=== PATIENT | male | born 1975 | race Caucasian/White ===

== ENCOUNTER 2017-05-10 09:05 | Emergency (ER) | payer SELFPAY ==
[~2017-05-10] VITALS: Ht 167.6 cm; Wt 83.0 kg
[2017-05-10 09:07] VITALS: Ht 167.6 cm; Wt 83.0 kg
[2017-05-10] MEDS ORDERED: ACETAMINOPHEN 325 MG TAB PO ONE (10:00)
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
--- NOTE | 2017-05-10 10:45 | RADRPT ---
PROCEDURE: US Abdomen. CLINICAL INDICATION: Abdominal pain TECHNIQUE: Multiple real-time images were acquired of the patient's abdomen and pelvis utilizing a high resolution transducer. COMPARISON: None FINDINGS: No free fluid is identified. RPTAT: AA IMPRESSION: No evidence of free fluid. .Jignesh Lloyd MD, Date Time Electronically viewed and signed by .Jignesh Lloyd MD, on 05/10/2017 10:45 .S/
[2017-05-10 11:39] LABS: UR CLARITY CLEAR (CLEAR); UR COLOR YELLOW (YELLOW); UR TOTAL PROTEIN (Dip) NEGATIVE (NEGATIVE)
[2017-05-10 11:43] LABS: UR GLUCOSE (Dip) 2+ mg/dL (NEGATIVE)
[2017-05-10 11:44] LABS: ADD UMIC NO; UR BILIRUBIN (Dip) NEGATIVE (NEGATIVE); UR BLOOD (Dip) NEGATIVE (NEGATIVE); UR KETONES (Dip) NEGATIVE (NEGATIVE); UR LEUKOCYTE ESTERASE (Dip) NEGATIVE Leu/ul (NEGATIVE); UR NITRITE (Dip) NEGATIVE (NEGATIVE); UR UROBILINOGEN (Dip) 0.2 E.U./dL mg/dL (NEGATIVE)
[2017-05-10] MEDS ORDERED: HYDR-906 PO (12:06)
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
== END 2017-05-10 12:19 | disposition home or self-care (01) ==
LOC: FTE 09:05
DX: S39.91XA Unspecified injury of abdomen, initial encounter (principal); E11.9 Type 2 diabetes mellitus without complications; V49.50XA Passenger injured in collision with unspecified motor vehicles in traffic accident, initial encounter
CPT/HCPCS: 72100; 76705; 81003